=== PATIENT | female | born 1995 | race Two or more races ===

== ENCOUNTER → 2025-06-11 | Emergency (ER) | payer BC ==
[~2025-06-11] VITALS: Ht 152.4 cm; Wt 56.8 kg
[2025-06-11 11:11] VITALS: BP 114/63; PULSE 73; RESP 16; TEMP 98; O2SAT 100
--- NOTE | 2025-06-11 11:54 | RADIOLOGY REPORT ---
CLINICAL INDICATION: RIGHT LEG PAIN TECHNIQUE: 2 radiographic views of the right tibia/fibula were obtained. 2 views of the right ankle were obtained. Comparison: None FINDINGS/IMPRESSION: There is no evidence of acute fracture or dislocation. The visualized joint space is well maintained. The alignment is anatomical. There is no radiopaque foreign body.
--- NOTE | 2025-06-11 14:33 | Physician Documentation ---
History of Present Illness General Chief Complaint: Leg Pain Stated Complaint: LEG PAIN Time Seen by MD: 14:23 Primary Medical Doctor: none History of Present Illness Initial Comments The patient is a 29-year-old female with no significant past medical history who accidentally placed her right foot/ankle between the car door and frame and close the door against her ankle. She comes in complaining of pain in and around the medial malleolus. She is ambulatory. Medication Reconciliation Allergies: Coded Allergies: No Known Allergies (Unverified , 06/11/25) Review of Systems ROS Review of systems is unremarkable with the exception of pain in and around the right medial malleolus of the ankle. Physical Exam Physical Exam Vital Signs: Temperature: 98.0, Source: Temporal, Heart Rate: 73, Respiratory Rate: 16, BP: 114/63, Pulse Oximetry: 100, Weight: 56.820 Oxygen Flow Rate: 0 Physical Exam Examination of the right foot and ankle reveals mild to moderate tenderness of the medial malleolus. Neurovascular is intact. Progress Results/Orders Results/Orders Orders - JUAN ROBERTS MD Tib/Fib (06/11/25 11:13) Ankle, Complete(3vw Min) (06/11/25 11:13) Completed Orders - JUAN ROBERTS MD Tib/Fib (06/11/25 11:13) Ankle, Complete(3vw Min) (06/11/25 11:13) Vital Signs 06/11/25 11:11 Temp 98.0 Pulse 73 Resp 16 B/P (MAP) 114/63 Pulse Ox 100 O2 Flow Rate 0 Medical Decision Making Findings This 29-year-old female presents with an injury of the right meal malleolus. X- rays of the foot/ankle/tib-fib are negative for acute findings. The injury is 3-day-old. I have recommended applying heat and taking acetaminophen/ibuprofen, as needed. Departure Disposition: HOME / SELF CARE / HOMELESS Impression: Primary Impression: Ankle bruise Condition: Stable Additional Instructions: Please do not hesitate to return for worsening symptoms or new/unusual symptoms. Referrals: NO PRIMARY CARE PROVIDER (PCP) Signature Scribe Signature: . Attestation: . JUAN ROBERTS MD Jun 11, 2025 14:33
== END | disposition home or self-care (01) ==
LOC: ER 11:09
DX: S90.01XA Contusion of right ankle, initial encounter (principal); W22.8XXA Striking against or struck by other objects, initial encounter; Y93.89 Activity, other specified; Y92.89 Other specified places as the place of occurrence of the external cause; Y99.8 Other external cause status
CPT/HCPCS: 73590; 73610; 99284